=== PATIENT | male | born 1975 | race African-American/Black ===

== ENCOUNTER 2022-12-27 06:25 | Emergency (ER) | payer MEDICAID, OTHER ==
[~2022-12-27] VITALS: Ht 190.5 cm; Wt 90.7 kg
[2022-12-27 06:41] VITALS: BP 108/63; TEMP 98.1
[2022-12-27 07:07] VITALS: O2SAT 98
== END 2022-12-27 07:08 | disposition home or self-care (01) ==
LOC: ER 06:32
DX: S82.61XA Displaced fracture of lateral malleolus of right fibula, initial encounter for closed fracture (principal); F17.200 Nicotine dependence, unspecified, uncomplicated; Z88.0 Allergy status to penicillin; X50.1XXA Overexertion from prolonged static or awkward postures, initial encounter; Y93.89 Activity, other specified; Y92.89 Other specified places as the place of occurrence of the external cause; Y99.8 Other external cause status
CPT/HCPCS: 73610-TC